=== PATIENT | male | born 1985 | race Caucasian/White ===

== ENCOUNTER 2021-09-22 18:56 | Emergency (ER) | payer OTHER ==
[~2021-09-22] VITALS: Ht 180.3 cm; Wt 81.7 kg
[~2021-09-22 18:56] MED LIST: BACTRIM DS TAB1 EACH PO; BACTROBAN CREAM30 G1 TOP; ONDANSETRON HCL4 M3 PO; VALIUM5 MG PO
[2021-09-22 19:24] VITALS: BP 143/65
== END 2021-09-22 19:32 | disposition home or self-care (01) ==
LOC: M.ERS 18:56
DX: S66.892A Other injury of other specified muscles, fascia and tendons at wrist and hand level, left hand, initial encounter (principal); X58.XXXA Exposure to other specified factors, initial encounter; Y93.89 Activity, other specified; Y92.89 Other specified places as the place of occurrence of the external cause; Y99.8 Other external cause status

== ENCOUNTER 2021-10-12 19:21 | Emergency (ER) | payer OTHER ==
[~2021-10-12] VITALS: Ht 180.3 cm; Wt 83.9 kg
[2021-10-12] MEDS ORDERED: OXYCODONE HCL 55 MG PO ×3 (19:41→22:50)
[2021-10-12 20:56] LABS: ABSOLUTE BASOPHILS 0.1 thou/uL (0.0-0.2); ABSOLUTE LYMPHOCYTES 2.7 thou/uL (0.8-5.3); ABSOLUTE MONOCYTES 1.4 thou/uL (0.0-1.2); ABSOLUTE NEUTROPHILS 9.5 thou/uL (1.6-8.1); BASOPHILS 0.7 %; EOSINOPHILS 0.3 %; HEMATOCRIT 45.2 % (42.0-52.0); HEMOGLOBIN 15.5 gm/dL (14.0-18.0); LYMPHOCYTES 19.9 %; MCHC 34.3 g/dL (28.0-37.0); MCV 90.4 fL (80.0-100.0); MONOCYTES 10.2 %; MPV 9.3 fl. (7.2-11.1); NUCLEATED RBCS 0 /100WBC; PLATELET COUNT* 213 thou/uL (150-400); POLYS 68.9 %; RDW-CV 13.1 % (10.5-14.5); WBC 13.8 thou/uL (4.0-11.0)
[2021-10-12 21:04] LABS: CALCIUM 9.5 mg/dL (8.5-10.1); CREATININE 1.2 mg/dL (0.6-1.3); POTASSIUM 3.7 mmol/L (3.5-5.1)
[2021-10-12 21:09] LABS: TOTAL BILIRUBIN 0.7 mg/dL (<0.1-1.0); TOTAL PROTEIN 7.8 g/dL (6.4-8.2)
[2021-10-12] MEDS ORDERED: ZOFRAN ODT4 MG PO ×2 (21:39→23:05)
[2021-10-12 22:00] VITALS: BP 128/74
--- NOTE | 2021-10-13 09:27 | EKG ---
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
== END 2021-10-12 22:05 | disposition home or self-care (01) ==
LOC: M.ERS 19:21
PROVIDERS: Nurse Practitioner Psychiatric/Mental Health
DX: G89.18 Other acute postprocedural pain (principal); F17.210 Nicotine dependence, cigarettes, uncomplicated